=== PATIENT | female | born 1990 | race African-American/Black ===

== ENCOUNTER 2018-07-15 21:54 | Emergency (ER) | payer OTHER, MEDICAID ==
[~2018-07-15] VITALS: Ht 160 cm; Wt 81.7 kg
[~2018-07-15 21:54] MED LIST: BACTRIM DS TAB1 EACH PO; DOXYCYCLINE 10100 MG PO; HYDROCODON-ACE1 EACH PO; IBUPROFEN 600600 M1 PO; IBUPROFEN 800800 M1 PO; IRON325; KENALOG60 GM TP; MACROBID 100 M100 M1 PO; NOHOMEMEDICATIONS; NORCO 5-325 TA1 EACH PO; PREDNISONE 20 M20 M1 PO; PRENATAL PO; ZOFRAN 4 MG ORAL4 MG PO; ZOFRAN4 MG PO
[2018-07-15 22:46] LABS: INFLUENZA A ANTIGEN None Detected (None Detect); INFLUENZA B ANTIGEN None Detected (None Detect)
[2018-07-15] MEDS ORDERED: AMOXICILLIN875 MG PO (22:56)
[2018-07-15] MEDS ORDERED: HYDROCODONE-ACE15 ML PO (22:56)
[2018-07-15 23:06] VITALS: BP 108/71
== END 2018-07-15 23:07 | disposition home or self-care (01) ==
LOC: M.ERS 21:54
PROVIDERS: Emergency Medicine
DX: J02.0 Streptococcal pharyngitis (principal); G43.909 Migraine, unspecified, not intractable, without status migrainosus; Z98.890 Other specified postprocedural states; Z88.2 Allergy status to sulfonamides; Z88.1 Allergy status to other antibiotic agents

== ENCOUNTER 2021-03-13 02:15 | Emergency (ER) | payer OTHER, MEDICAID ==
[~2021-03-13] VITALS: Ht 160 cm; Wt 68.0 kg
[~2021-03-13 02:15] MED LIST changes: +AMOXICILLIN875 MG PO; +HYDROCODONE-ACE15 ML PO
[2021-03-13 02:22] VITALS: BP 106/65
[2021-03-13 02:48] LABS: URINE BILIRUBIN NEGATIVE (Negative); URINE BLOOD 1+ (Negative); URINE CLARITY CLEAR; URINE COLOR YELLOW; URINE GLUCOSE-RANDOM NEGATIVE (Negative); URINE KETONES NEGATIVE (Negative); URINE LEUKOCYTES-REFLEX NEGATIVE (Negative); URINE NITRITE-REFLEX NEGATIVE (Negative); URINE PROTEIN NEGATIVE (Negative); URINE SPECIFIC GRAVITY 1.025 (1.005-1.030); URINE UROBILINOGEN 0.2 E.U./dl (0.2-1.0)
[2021-03-13 02:54] LABS: BACTERIA-REFLEX None Seen /HPF (None Seen); CASTS None Seen /LPF (None Seen); CRYSTALS None Seen /LPF (None Seen); SQUAMOUS 0-3 Few /LPF (0-3); URINE RBC 3-10 Few /HPF (0-2); URINE WBC-REFLEX None Seen /HPF (0-5)
[2021-03-13] MEDS ORDERED: TRAMADOL 50 MG50 MG PO (03:24)
[2021-03-13 03:50] LABS: INFLUENZA A ANTIGEN Negative (Negative); INFLUENZA B ANTIGEN Negative (Negative)
== END 2021-03-13 03:29 | disposition home or self-care (01) ==
LOC: M.ERS 02:15
PROVIDERS: Emergency Medicine
DX: U07.1 COVID-19 (principal); G43.909 Migraine, unspecified, not intractable, without status migrainosus; Z88.2 Allergy status to sulfonamides